=== PATIENT | female | born 1960 | race Caucasian/White ===

== ENCOUNTER 2024-08-21 22:47 | Emergency (ER) | payer MEDICAID, SELFPAY ==
[2024-08-21 22:49] VITALS: BMI 35.6
[2024-08-21 23:59] VITALS: BP 145/90; PULSE 80; RESP 20; TEMP 36.7; O2SAT 98
[2024-08-22] MEDS: LIDOCAINE VISCOUS 2% 15 ML UDC PO (00:27)
--- NOTE | 2024-08-22 01:42 | PD.EDURI ---
Upper Respiratory Inf. RME/HPI General Chief Complaint: Dental/Oral/Throat Stated Complaint: THROAT PAIN AFTER CHOKING Time Seen by Provider: 08/22/24 00:20 Arrival date/time: 08/21/24 22:47 63F with history of HTN, DM, and hypothyroidism presents to ED with throat pain after she choked on some rice. Patient states she had some N/V, which helped. Patient just has some throat irritation now. Patient denies SOB and N/V. Limitations: no limitations Related Data Home Medications ?Medication ?Instructions ?Recorded ?Confirmed atorvastatin 40 mg tablet 40 mg PO QPM 08/01/18 02/16/22 folic acid 1 mg tablet 1 mg PO QDAY 08/01/18 02/16/22 gabapentin 600 mg tablet 600 mg PO TID 08/01/18 02/16/22 levothyroxine 175 mcg tablet 175 mcg PO QDAY 08/01/18 02/17/22 metformin 1,000 mg tablet 1,000 mg PO BID 08/01/18 02/16/22 methotrexate sodium 2.5 mg tablet 2.5 mg PO QWEEK 08/01/18 02/16/22 lisinopril 40 mg tablet 40 mg PO QDAY 04/16/19 02/17/22 amlodipine 10 mg tablet 10 mg PO QDAY 02/16/22 02/17/22 finerenone 10 mg tablet (Kerendia) 10 mg PO QDAY 02/16/22 02/16/22 golimumab 50 mg/0.5 mL 50 mg subcut QMONTH 02/16/22 02/16/22 subcutaneous pen injector (Simponi) oxybutynin chloride 5 mg tablet 5 mg PO QDAY 02/16/22 02/16/22 semaglutide 1 mg/dose (2 mg/1.5 1 mg subcut QWEEK 02/16/22 02/16/22 mL) subcutaneous pen injector (Ozempic) Allergies Allergy/AdvReac Type Severity Reaction Status Date / Time sulfamethoxazole Allergy Mild Rash Verified 02/17/22 12:15 trimethoprim Allergy Mild Rash Verified 02/17/22 12:15 tetanus toxoid, adsorbed Allergy Unknown SWELLING Verified 02/17/22 12:15 LIPS Review of Systems Review of Systems Systems Reviewed: All systems reviewed, normal except as documented Constitutional Constitutional: Reports system reviewed and no additional complaints, except as documented, Denies fever(s) and Denies headache(s) ENT Ears, Nose, Mouth, and Throat: Reports as per HPI, Denies disequilibrium, Denies headache(s) and Reports sore throat Cardiovascular Cardiovascular: Reports system reviewed and no additional complaints, except as documented, Denies chest pain and Denies dyspnea Respiratory Respiratory: Reports system reviewed and no additional complaints, except as documented, Denies cough and Denies dyspnea Gastrointestinal Gastrointestinal: Reports system reviewed and no additional complaints, except as documented, Denies abdominal pain, Denies nausea and Denies vomiting Neurologic Neurologic: Reports system reviewed and no additional complaints, except as documented, Denies confusion, Denies disequilibrium and Denies headache(s) Psychiatric Psychiatric: Denies confusion Past Medical History Past Medical History NEUROLOGIC: Negative Neurological Disorders or Seizures CARDIAC: Positive Cardiac Disorders, Hypercholesterolemia and Hypertension; Negative Congestive Heart Failure RESPIRATORY: Negative Chronic Obstructive Pulmonary Disease (COPD) or Asthma GASTROINTESTINAL: Positive Gastrointestinal Disorders and Gastroesophageal Reflux Disease GENITOURINARY: Positive Genitourinary Disorders (overactive bladder); Negative Renal Disease (sees a kidney doctor) MUSCULOSKELETAL: Positive Musculoskeletal Disorders, Rheumatoid Arthritis and Degenerative Disk Disease ENDOCRINE: Positive Endocrine Disorders, Diabetes Mellitus Type 2 and Hypothyroidism; Negative Diabetes Mellitus Type 1 HEMATOLOGIC: Negative Blood Disorders or Sickle Cell Disease OTHER HISTORY: Positive Hospitalization (December 2021); Negative Autoimmune Disease, Falls, Blood Transfusions or Anesthesia Reactions Family History FAMILY HISTORY: Positive Family Respiratory Disorders (mother-COPD, sister-asthma) and Family Cardiac Disorders (mother-HTN, sister-hypotension); Negative Family Gastrointestinal Problems Surgical History SURGICAL: Positive Tubal Ligation; Negative Cardiac Surgery, Ear Surgery, Tympanostomy Tube or Abdominal Surgery Social History SMOKING STATUS: Never smoker ED Exam General Limitations: Present no limitations General appearance: Present alert and in no apparent distress Head Head exam: Present atraumatic Eye Eye exam: Present normal appearance, PERRL and EOMI ENT ENT exam: Present normal exam, normal oropharynx and mucous membranes moist Neck Neck exam: Present normal inspection, full ROM and trachea midline Chest Chest inspection: Present normal inspection and symmetric chest wall rise Respiratory Respiratory exam: Present normal lung sounds bilaterally Cardiovascular Cardiovascular exam: Present regular rate, normal rhythm and normal heart sounds Abdominal Exam Abdominal exam: Present soft and normal bowel sounds Extremities Exam Extremities exam: Present normal inspection and full ROM Back Exam Back exam: Present normal inspection and full ROM Neurological Exam Neurological exam: Present alert, oriented X3 and CN II-XII intact Psychiatric Psychiatric exam: Present normal affect and normal mood Skin Skin exam: Present warm, dry, intact and normal color Course Quality Measures none Orders Category Date Time Status Lidocaine 2% Viscous [Xylocaine 2% Viscous] Med 08/22/24 00:21 Discontinued 15 ml PO X1 ONE Vital Signs Vital signs: Vital Signs Temperature 98.0 F 08/21/24 23:59 Pulse Rate 80 08/21/24 23:59 Respiratory Rate 20 08/21/24 23:59 Blood Pressure 145/90 H 08/21/24 23:59 Pulse Oximetry (%) 98 08/21/24 23:59 Oxygen Delivery Method Room Air 08/21/24 23:59 O2 at 98% on RA and WNLs Upper Respiratory Infection MDM Narrative MDM Narrative:: 63F with history of HTN, DM, and hypothyroidism presents to ED with throat pain after she choked on some rice. Patient states she had some N/V, which helped. Patient just has some throat irritation now. Patient denies SOB and N/V. Physical exam reveals clear oropharynx and lungs. Normal WOB. Speech normal. Patient is afebrile, calm, and alert. PO challenge passed. Viscous lido helped. 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 Patient data External records reviewed:: [facility] previous records Clinical information provided by:: patient Social determinants that could affect healthcare access:: none Patient has the following chronic illnesses:: HTN, DM, and hypothyroidism How is presenting disease/condition affected by chronic disease/condition?: exacerbated by Evaluation data The following diagnostics were reviewed and interpreted by me:: other (specify) (none) Lab and/or radiology exams considered but not ordered:: not ordered Interpretation Summary: n/a Medications / Prescriptions Medications or Prescriptions considered but not ordered:: ordered Medication administrations:: Medication Administration History Discontinued Medications Lidocaine HCl (Lidocaine Viscous 2% 15 Ml Udc) 15 ml PO X1 ONE Stop: 08/22/24 00:22 Last Admin: 08/22/24 00:27 Dose: 15 ml Documented By: KF above Consultations Consultation(s) initiated? (list below): No Diagnosis Upper Respiratory Differential Diagnosis: upper respiratory infection, croup, otitis media, sinusitis, viral infection, bronchitis, influenza, pharyngitis and other (FB alimentary) Most likely diagnosis given after review of the tests above:: FB alimentary Admission Indicated Admission indicated?: not indicated Admission Request Was there a request for admission?: No Disposition Plan Disposition Plan: Discharge Discharge Attestation Discharge Attestation: The patient and all family members were given an opportunity to ask questions and understood the discharge instructions. Discharge instructions specifically effects, indications for sooner follow up or return to the emergency department, and the expected course of current diagnosis. Patient condition: Stable Discharge Plan Plan Patient Disposition: HOME (Self Care) Discharge Disposition comment: Stable Prescriptions/Referrals Prescriptions/Med Rec: No Action atorvastatin 40 mg Tablet 40 mg PO QPM levothyroxine 175 mcg Tablet 175 mcg PO QDAY gabapentin 600 mg Tablet 600 mg PO TID methotrexate sodium 2.5 mg Tablet 2.5 mg PO QWEEK metformin 1,000 mg Tablet 1,000 mg PO BID folic acid 1 mg Tablet 1 mg PO QDAY lisinopril 40 mg tablet 40 mg PO QDAY amlodipine 10 mg Tablet 10 mg PO QDAY oxybutynin chloride 5 mg Tablet 5 mg PO QDAY Simponi 50 mg/0.5 mL Pen Injector 50 mg SUBCUT QMONTH Ozempic 1 mg/dose (2 mg/1.5 mL) Pen Injector 1 mg SUBCUT QWEEK Kerendia 10 mg Tablet 10 mg PO QDAY Problem List Clinical Impression: Foreign body in alimentary tract Patient/Caregiver Discharge Instructions Education Materials: ED Swallowed Foreign Body (Adult) Additional Instructions: Please follow-up with PCP within 24-48 hours and return immediately if symptoms worsen. Print Language: Congolese Stand Alone Forms: Patient Portal Info Letter TAMEKA/KAUSHAL Supervising Physician DK Supervising Physician: Dr. Warner
== END 2024-08-22 00:54 | disposition home or self-care (01) ==
LOC: SERX 08-22 01:41
PROVIDERS: Emergency Provider Emergency Medicine; PCP Student in an Organized Health Care Education/Training Program
DX: T18.9XXA Foreign body of alimentary tract, part unspecified, initial encounter (principal); W44.9XXA Unspecified foreign body entering into or through a natural orifice, initial encounter; I10 Essential (primary) hypertension; E11.9 Type 2 diabetes mellitus without complications; E03.9 Hypothyroidism, unspecified
CPT/HCPCS: 99282; J3490

== ENCOUNTER → 2024-08-26 | Outpatient (CLI) | payer MEDICAID, SELFPAY ==
--- NOTE | 2024-08-26 08:30 | XR_ITS ---
Examination: Screening digital mammography, bilateral Computer aided detection 3-D breast Tomosynthesis, bilateral Date and time of exam: August 26, 2024 0804 hours Compared to mammograms dating to November 02, 2017 Indication: Screening Technique: Nonmagnified MLO, CC views of the breasts to been obtained, reconstructed from 3-D Tomosynthesis images. R2 computer aided detection program utilized for evaluation of suspicious masses and/or abnormal calcifications. 3-D Tomosynthesis images obtained. Findings: Scattered areas of fibroglandular density Stable focal asymmetry outer left breast CC view No interval suspicious masses Impression: BI-RADS category II: Benign Findings. Recommend 1 year follow-up mammogram.
== END | disposition home or self-care (01) ==
LOC: CDIM 07:57
PROVIDERS: Referring Provider Obstetrics & Gynecology; Visit Provider Obstetrics & Gynecology
DX: Z12.31 Encounter for screening mammogram for malignant neoplasm of breast (principal); R92.323 Mammographic fibroglandular density, bilateral breasts
CPT/HCPCS: 77063; 77067

== ENCOUNTER 2025-01-06 16:49 | Emergency (ER) | payer MEDICAID, SELFPAY ==
[2025-01-06 16:51] VITALS: BMI 36.6
[2025-01-06 17:07] VITALS: BP 132/83; PULSE 121; RESP 20; TEMP 39.4; O2SAT 95
--- NOTE | 2025-01-06 17:24 | XR_ITS ---
Examination: CT abdomen and pelvis without contrast. Coronal 3-D reconstructions. Sagittal 2-D reconstructions. Date and time of exam:January 06, 2025 1839 hrs., Comparison 12/29/2021 Indications: Bilateral flank pain lower abdominal pain today CTDI: vol (mGy): 10.7 DLP: (mGycm): 642 Technique: Axial images of the abdomen have been obtained, 3 mm slice thickness Intravenous contrast material has not been administered. Low dose protocols were performed. One or more of the following dose reduction techniques were used; automated exposure control, adjustment of the mA and/or KV according to patient size, use of iterative reconstruction technique. Findings: Hepatomegaly 19 cm No focal liver or splenic lesions Multiple gallstones No pancreatic or adrenal mass No renal or ureteral calculi, no hydronephrosis Normal appendix Colonic diverticulosis, no diverticulitis No bladder mass or bladder calculi Anteverted uterus with small areas of calcification Advanced degenerative disc disease upper 4 lumbar levels and visualized thoracic levels Mild to moderate bilateral hip osteoarthritis Impression: Hepatomegaly, 19 cm Cholelithiasis, negative for cholecystitis Mild to moderate bilateral renal parenchymal scar formation No renal or ureteral calculi, no hydronephrosis Normal appendix Colonic diverticulosis, no diverticulitis Advanced thoracic and lumbar degenerative disc disease
[2025-01-06 17:54] LABS: Basophils # (Auto) 0.0 Thou/mm3 (0.0-0.2); Basophils % (Auto) 0 % (0-2.5); Eosinophils # (Auto) 0.2 Thou/mm3 (0.0-0.5); Eosinophils % (Auto) 1 % (0-10); Hematocrit 34.7 % (36.0-46.0); Hemoglobin 11.6 g/dL (12.0-16.0); Immature Granulocytes Auto 0.05 Thou/mm3 (0.00-0.00); Lymphocytes # (Auto) 0.8 Thou/mm3 (1.0-4.8); Lymphocytes % (Auto) 5 % (10-50); Mean Corpuscular HGB Conc 33.4 g/dl (31.0-37.0); Mean Corpuscular Hemoglobin 31.8 pg (25.0-35.0); Mean Corpuscular Volume 95 fL (80-100); Monocytes # (Auto) 0.7 Thou/mm3 (0.0-0.8); Monocytes % (Auto) 4 % (0-12); Neutrophils # (Auto) 14.7 Thou/mm3 (1.8-7.7); Neutrophils % (Auto) 89 % (37-80); Nucleated Red Blood Cell # 0.00 Thou/mm3 (0.00-0.00); Nucleated Red Blood Cell % 0 /100 WBC (0); Platelet Count 247 Thou/mm3 (140-440); RDW Standard Deviation 51.0 fL (36.4-46.3); Red Blood Count 3.65 Miln/mm3 (4.00-5.20); White Blood Count 16.4 Thou/mm3 (3.6-11.0)
[2025-01-06 18:15] LABS: Alanine Aminotransferase 35 U/L (10-49); Albumin, Serum 4.3 gm/dL (3.4-4.8); Albumin/Globulin Ratio 1.6 (1.2-2.2); Alkaline Phosphatase 71 U/L (46-116); Amylase 127 U/L (30-118); Anion Gap 9 (7-16); Aspartate Amino Transferase 31 U/L (0-34); BUN/Creatinine Ratio 9 Ratio (12-20); Bilirubin,Total 0.7 mg/dL (0.3-1.2); Blood Urea Nitrogen 10 mg/dL (9-23); Calcium 9.3 mg/dL (8.3-10.6); Calcium (Corrected) 9.3 mg/dL (8.5-10.1); Carbon Dioxide 21.2 mMol/L (20.0-31.0); Chloride 104 mMol/L (98-107); Creatinine (Component) 1.1 mg/dL (0.6-1.3); Estimated Creatinine Clearance 55.5 mL/min (>60); Globulin 2.7 gm/dL (2.3-3.5); Glucose 198 mg/dL (74-106); Osmolality,Calculated 273 (275-295); Potassium 4.3 mMol/L (3.4-5.1); Sodium 134 mMol/L (136-145); Total Protein 7.0 gm/dL (5.7-8.2); eGFR 57 See Note
[2025-01-06 19:10] LABS: Collection Type, Urine Clean Catch
[2025-01-06 19:18] LABS: Bilirubin,Urine Negative (Negative); Blood,Urine Negative (Negative); Clarity,Urine Clear (Clear/Hazy); Color,Urine Lt-Yellow (Lt Yel-Yel); Glucose, Urine Negative (Negative); Ketones,Urine Negative (Negative); Leukocyte Esterase,Urine Negative (Negative); Nitrite,Urine Negative (Negative); PH,Urine 6.5 (5.0-7.0); Protein,Urine 1+ (Neg - Trace); RBC,Urine < 1 /hpf (0-3); Specific Gravity,Urine 1.013 (1.001-1.035); Squamous Epithelial Cell,Urine < 1 /hpf (0-5); Urobilinogen,Urine Negative mg/dL (0.0-1.0); WBC,Urine < 1 /hpf (0-5)
--- NOTE | 2025-01-06 20:44 | XR_ITS ---
Examination: Abdomen sonogram, Limited Date and time of exam: January 06, 2025 2128 hrs. Indications: Onset abdominal pain today Technique: Real-time fox scale transabdominal sonographic images of the upper abdomen obtained. Findings: Multiple gallstones Normal gallbladder wall Normal common bile duct 0.4 cm Pancreatic head 2.4 cm Liver 21 cm no liver lesions Normal hepatopedal portal venous flow Patent IVC Impression: Cholelithiasis, negative for cholecystitis Moderate hepatomegaly fatty infiltration no focal liver lesions
--- NOTE | 2025-01-06 21:14 | PD.EDRME ---
Rapid Medical Screening Exam RME Arrival date/time: 01/06/25 16:49 This is a case of 65-year-old female with no medical history came in in the emergency room due to fever and chills for 2 days associated with abdominal pain patient denies any other symptoms worsening of the symptoms this patient decided to start consult here in the emergency room Chief Complaint: General Adult/Misc Complain Time Seen by Provider: 01/06/25 17:09 Vital signs: Vital Signs Temperature 102.9 F H 01/06/25 17:07 Pulse Rate 121 H 01/06/25 17:07 Respiratory Rate 20 01/06/25 17:07 Blood Pressure 132/83 H 01/06/25 17:07 Pulse Oximetry (%) 95 01/06/25 17:07 Oxygen Delivery Method Room Air 01/06/25 17:07
[2025-01-06 21:22] LABS: Lactate (Lactic Acid) 1.1 mMol/L (0.4-2.0)
--- NOTE | 2025-01-06 21:24 | PD.EDFEVER ---
ED Fever RME/HPI General Chief Complaint: General Adult/Misc Complain Stated Complaint: SHAKING ALL DAY Time Seen by Provider: 01/06/25 17:09 Arrival date/time: 01/06/25 16:49 RME / HPI RME / HPI Narrative: 01/06/25 16:49 This is a case of 65-year-old female with no medical history came in in the emergency room due to fever and chills for 2 days associated with abdominal pain patient denies any other symptoms worsening of the symptoms this patient decided to start consult here in the emergency room DR. HARTMAN MAIN ED EVALUATION: 64 y/o female with Hx of Type II DM, Hypercholesterolemia, Hypothyroidism, GERD, and HTN presents to ED c/o fever, chills, and BL lower abdominal pain x this afternoon. Patient takes Metformin for DM, Levothyroxine for Hypothyroidism, and Gabapentin for neuropathy. Patient has Hx of Tubal Ligation. Patient has been at facility for 4.5 hours prior to my evaluation. Related Data Home Medications ?Medication ?Instructions ?Recorded ?Confirmed atorvastatin 40 mg tablet 40 mg PO QPM 08/01/18 02/16/22 folic acid 1 mg tablet 1 mg PO QDAY 08/01/18 02/16/22 gabapentin 600 mg tablet 600 mg PO TID 08/01/18 02/16/22 levothyroxine 175 mcg tablet 175 mcg PO QDAY 08/01/18 02/17/22 metformin 1,000 mg tablet 1,000 mg PO BID 08/01/18 02/16/22 methotrexate sodium 2.5 mg tablet 2.5 mg PO QWEEK 08/01/18 02/16/22 lisinopril 40 mg tablet 40 mg PO QDAY 04/16/19 02/17/22 amlodipine 10 mg tablet 10 mg PO QDAY 02/16/22 02/17/22 finerenone 10 mg tablet (Kerendia) 10 mg PO QDAY 02/16/22 02/16/22 golimumab 50 mg/0.5 mL 50 mg subcut QMONTH 02/16/22 02/16/22 subcutaneous pen injector (Simponi) oxybutynin chloride 5 mg tablet 5 mg PO QDAY 02/16/22 02/16/22 semaglutide 1 mg/dose (2 mg/1.5 1 mg subcut QWEEK 02/16/22 02/16/22 mL) subcutaneous pen injector (Ozempic) Allergies Allergy/AdvReac Type Severity Reaction Status Date / Time sulfamethoxazole Allergy Mild Rash Verified 01/06/25 16:53 trimethoprim Allergy Mild Rash Verified 01/06/25 16:53 tetanus toxoid, adsorbed Allergy Unknown SWELLING Verified 01/06/25 16:53 LIPS Review of Systems Review of Systems Systems Reviewed: All systems reviewed, normal except as documented Past Medical History Past Medical History CARDIAC: Positive Cardiac Disorders, Hypercholesterolemia and Hypertension GASTROINTESTINAL: Positive Gastrointestinal Disorders and Gastroesophageal Reflux Disease GENITOURINARY: Positive Genitourinary Disorders MUSCULOSKELETAL: Positive Musculoskeletal Disorders, Arthritis, Rheumatoid Arthritis and Degenerative Disk Disease ENDOCRINE: Positive Diabetes Mellitus Type 2 and Hypothyroidism OTHER HISTORY: Positive Hospitalization Family History FAMILY HISTORY: Positive Family Cardiac Disorders Surgical History SURGICAL: Positive Tubal Ligation Physical Exam Narrative Physical exam: Generally patient is alert [id number] and in no obvious distress. I am seeing this patient for and 1/2 hours into her hospital stay and she is no longer febrile. Heart regular rate and rhythm and no longer tachycardic, lungs clear to auscultation equal bilaterally, abdomen soft bowel sounds present nondistended mild suprapubic abdominal tenderness without rebound. No epigastric or right upper quadrant abdominal tenderness no Edwards sign. Skin is warm pale and dry without rash. Neck shows no nuchal rigidity, oropharynx is moist and clear neurologic exam no focal motor deficits. [place] Coma Scale is 15. Course Course Course Narrative: Sepsis alert initiated. Orders made at this time are congruent with ED Adult Sepsis Order List. Re-evaluation is to be completed. Quality Measures Current suspected stage: sepsis Possible source: unknown Blood cultures ordered: yes Antibiotic ordered: Yes Pertinent labs: 01/06/25 21:08 Lactic Acid 1.1 mMol/L (0.4-2.0) sepsis Orders Category Date Time Status Bedside COVID-19 Antigen Test NOW Care 01/06/25 17:24 Active Bedside Influenza A&B Antigen Test NOW Care 01/06/25 17:[address] abdomen pelvis wo con Stat Exams 01/06/25 17:24 Completed US gall bladder Stat Exams 01/06/25 20:44 Taken Amylase Stat Lab 01/06/25 17:35 Completed Blood Culture (Lab) Stat Lab 01/06/25 21:08 Received CBC Stat Lab 01/06/25 17:35 Completed Comprehensive Metabolic Panel Stat Lab 01/06/25 17:35 Completed Lactic Acid [Lactate (Lactic Acid)] Stat Lab 01/06/25 21:08 Completed Urinalysis Stat Lab 01/06/25 18:20 Completed Acetaminophen Tab [Tylenol Tab] Med 01/06/25 17:24 Discontinued 650 mg PO X1 ONE Ibuprofen Tab [Motrin Tab] Med 01/06/25 17:24 Discontinued 800 mg PO X1 ONE Sodium Chloride 0.9% 1000 ml [Ns] 1,000 ml Med 01/06/25 20:45 Active IV 999 mls/hr cefTRIAXone [Rocephin] 2 gm Med 01/06/25 20:44 Discontinued SODIUM CHLORIDE 0.9% (Popper) [Ns 0.9% (P)] 50 ml IV X1 Vital Signs Vital signs: Vital Signs Temperature 102.9 F H 01/06/25 17:07 Pulse Rate 121 H 01/06/25 17:07 Respiratory Rate 20 01/06/25 17:07 Blood Pressure 132/83 H 01/06/25 17:07 Pulse Oximetry (%) 95 01/06/25 17:07 Oxygen Delivery Method Room Air 01/06/25 17:07 Fever MDM Narrative MDM Narrative:: Scribe Attestation: IRenea, am scribing for and in the presence of Dr. Hartman. Provider Notation: Although this document has been carefully reviewed, there may still be some phonetic and other typographical errors. These errors are purely grammatical due to imperfections in the software program and should not be construed in any way to compromise the substance of the patient's medical care during this visit. I interpreted all labs. There is a leukocytosis of 16,400. Urine is clear. Lactic acid level is 1.1. CT scan down the abdomen and pelvis without contrast showed no evidence of diverticulitis or appendicitis. It did show gallstones without criteria for cholecystitis. There was no evidence of intra-abdominal organ infection or inflammation. Gallbladder ultrasound showed gallstones without wall thickening or Gilberto cholecystic fluid within normal size common bile duct. I had a long discussion with the patient and advised her to take Tylenol for her fever. Follow-up with her doctor. Return to ER as needed or if condition worsens. The patient's abdominal exam is quite benign. She has had no cough. No sore throat. No headache. No rash. Patient data External records reviewed:: [facility] previous records (Reviewed prior ED records from 08/22/24. Patient was seen for Foreign body in alimentary tract.) Clinical information provided by:: patient Social determinants that could affect healthcare access:: none Patient has the following chronic illnesses:: Hypercholesterolemia, Hypertension, Gastroesophageal Reflux Disease, Arthritis, Rheumatoid Arthritis, Degenerative Disk Disease, Diabetes Mellitus Type 2 and Hypothyroidism How is presenting disease/condition affected by chronic disease/condition?: exacerbated by Evaluation data The following diagnostics were reviewed and interpreted by me:: lab results and radiology exam(s) Lab and/or radiology exams considered but not ordered:: None Interpretation Summary: RADIOLOGY Abdomen/Pelvis CT: Findings: Hepatomegaly 19 cm No focal liver or splenic lesions Multiple gallstones No pancreatic or adrenal mass No renal or ureteral calculi, no hydronephrosis Normal appendix Colonic diverticulosis, no diverticulitis No bladder mass or bladder calculi Anteverted uterus with small areas of calcification Advanced degenerative disc disease upper 4 lumbar levels and visualized thoracic levels Mild to moderate bilateral hip osteoarthritis Impression: Hepatomegaly, 19 cm Cholelithiasis, negative for cholecystitis Mild to moderate bilateral renal parenchymal scar formation No renal or ureteral calculi, no hydronephrosis Normal appendix Colonic diverticulosis, no diverticulitis Advanced thoracic and lumbar degenerative disc disease Gall Bladder US: Findings: Multiple gallstones Normal gallbladder wall Normal common bile duct 0.4 cm Pancreatic head 2.4 cm Liver 21 cm no liver lesions Normal hepatopedal portal venous flow Patent IVC Impression: Cholelithiasis, negative for cholecystitis Moderate hepatomegaly fatty infiltration no focal liver lesions Medications / Prescriptions Medications or Prescriptions considered but not ordered:: None Medication administrations:: Medication Administration History Discontinued Medications Acetaminophen (Acetaminophen 325 Mg Tablet) 650 mg PO X1 ONE Stop: 01/06/25 17:25 Last Admin: 01/06/25 17:37 Dose: Not Given Documented By: PABLO Non-Admin Reason: Patient Refused Ceftriaxone Sodium 2 gm/ (Sodium Chloride) 50 mls @ 100 mls/hr IV X1 ONE Stop: 01/06/25 21:13 Last Admin: 01/06/25 21:43 Dose: 100 mls/hr Documented By: ASHA Sodium Chloride (Ns) 1,000 mls @ 999 mls/hr IV .Q1H1M ONE Stop: 01/06/25 21:45 Last Admin: 01/06/25 21:44 Dose: 999 mls/hr Documented By: AHSA Ibuprofen (Ibuprofen Tab 400 Mg Tablet) 800 mg PO X1 ONE Stop: 01/06/25 17:25 Last Admin: 01/06/25 17:37 Dose: Not Given Documented By: PABLO Non-Admin Reason: Patient Refused See above if any Consultations Consultation(s) initiated? (list below): No Diagnosis Fever Differential Diagnosis: cellulitis, fever of unknown origin, gastroenteritis, community acquired pneumonia, pyelonephritis, viral infection, sepsis, influenza and other (Cholecystitis, Cholelithiasis) Most likely diagnosis given after review of the tests above:: none Admission Indicated Admission indicated?: not indicated Explain why admission is indicated or not indicated:: Patient does not meet admission criteria. Admission Request Was there a request for admission?: No Disposition Plan Disposition Plan: Discharge Discharge Attestation Discharge Attestation: The patient and all family members were given an opportunity to ask questions and understood the discharge instructions. Discharge instructions specifically effects, indications for sooner follow up or return to the emergency department, and the expected course of current diagnosis. Patient condition: Stable Discharge Plan Plan Patient Disposition: HOME (Self Care) Prescriptions/Referrals Prescriptions/Med Rec: No Action atorvastatin 40 mg Tablet 40 mg PO QPM levothyroxine 175 mcg Tablet 175 mcg PO QDAY gabapentin 600 mg Tablet 600 mg PO TID methotrexate sodium 2.5 mg Tablet 2.5 mg PO QWEEK metformin 1,000 mg Tablet 1,000 mg PO BID folic acid 1 mg Tablet 1 mg PO QDAY lisinopril 40 mg tablet 40 mg PO QDAY amlodipine 10 mg Tablet 10 mg PO QDAY oxybutynin chloride 5 mg Tablet 5 mg PO QDAY Simponi 50 mg/0.5 mL Pen Injector 50 mg SUBCUT QMONTH Ozempic 1 mg/dose (2 mg/1.5 mL) Pen Injector 1 mg SUBCUT QWEEK Kerendia 10 mg Tablet 10 mg PO QDAY Referrals: No Primary/Family,Physician [Primary Care Provider] - In 1 week Problem List Clinical Impression: Abdominal pain, Fever of unknown origin Patient/Caregiver Discharge Instructions Education Materials: Abdominal Pain Additional Instructions: Use Tylenol for your fever. Follow-up with your doctor. Return to ER as needed or if condition worsens. Print Language: Telugu Stand Alone Forms: [employer] Award Info., Patient Portal Info Letter
[2025-01-06 21:26] VITALS: BP 119/61; PULSE 95; RESP 19; TEMP 37; O2SAT 98
[2025-01-06] MEDS: cefTRIAXone 2 GM in SODIUM CHLORIDE 0.9% (Popper) 50 ML IV (21:43)
[2025-01-06] MEDS: SODIUM CHLORIDE 0.9% 1000 ML 1,000 ML 999 ML IV (21:44)
== END 2025-01-06 22:10 | disposition home or self-care (01) ==
PROVIDERS: Nurse Practitioner Family; Emergency Provider Emergency Medicine
DX: K80.20 Calculus of gallbladder without cholecystitis without obstruction (principal); R50.9 Fever, unspecified; D72.829 Elevated white blood cell count, unspecified; K76.0 Fatty (change of) liver, not elsewhere classified; K57.30 Diverticulosis of large intestine without perforation or abscess without bleeding; M51.34 Other intervertebral disc degeneration, thoracic region; M51.369 Other intervertebral disc degeneration, lumbar region without mention of lumbar back pain or lower extremity pain; E78.00 Pure hypercholesterolemia, unspecified; I10 Essential (primary) hypertension; M06.9 Rheumatoid arthritis, unspecified; E03.9 Hypothyroidism, unspecified; E11.40 Type 2 diabetes mellitus with diabetic neuropathy, unspecified; K21.9 Gastro-esophageal reflux disease without esophagitis; Z98.51 Tubal ligation status; Z88.1 Allergy status to other antibiotic agents; Z88.2 Allergy status to sulfonamides; Z88.7 Allergy status to serum and vaccine
CPT/HCPCS: 36415; 74176; 76705; 80053; 81001; 82150; 83605; 85025; 87040; 87400; 87811; 96365; 99284; J0696; J7030; J7050